=== PATIENT | female | born 1995 | race Caucasian/White ===

== ENCOUNTER 2020-04-21 09:19 | Emergency (ER) | payer BC ==
[~2020-04-21] VITALS: Ht 152.4 cm; Wt 47.7 kg
[2020-04-21 09:21] VITALS: BP 131/91
== END 2020-04-21 10:41 | disposition home or self-care (01) ==
LOC: ER 09:19
DX: R19.7 Diarrhea, unspecified (principal); R51.9 Headache, unspecified; M79.10 Myalgia, unspecified site; R43.9 Unspecified disturbances of smell and taste
CPT/HCPCS: 36415; 99282